=== PATIENT | female | born 1955 | race Caucasian/White ===

== ENCOUNTER 2016-12-19 21:52 | Emergency (ER) | payer BC ==
[2016-12-19 22:04] VITALS: BP 138/84; PULSE 90; TEMP 98.5; BMI 40.9
[2016-12-19] MEDS ORDERED: KETOROLAC TROMETHAMINE 30 MG/1 ML VIAL IM ONE (22:34)
[2016-12-19] MEDS ORDERED: KETOROLAC TROMETHAMINE 30 MG/1 ML VIAL ONE (22:35)
--- NOTE | 2016-12-19 22:53 | PDOC ---
History of Present Illness - General Chief Complaint: Pain Stated Complaint: KNEE PAIN Time Seen by Provider: 12/19/16 22:24 History Source: Patient Exam Limitations: No Limitations - History of Present Illness Initial Comments: 12/19/16 22:48 CC sudden episode of hearing a crack followed by severe left knee pain at 7:30 tonight; recent hx of stiff left knee x ~ 3 week; no remember trauma Occurred: reports: just prior to arrival Severity: reports: severe Pain Location: reports: lower extremity (left knee) Past History - Past Medical History Allergies/Adverse Reactions: Allergies Allergy/AdvReac Type Severity Reaction Status Date / Time codeine Allergy Severe Verified 12/19/16 22:02 Home Medications: Ambulatory Orders Amlodipine Besylate 5 mg PO ASDIR 12/19/16 Cholecalciferol (Vitamin D3) [Vitamin D3 -] 400 unit PO DAILY 12/19/16 Dulaglutide [Trulicity] 1.5 mg SQ ASDIR 12/19/16 Levothyroxine [Synthroid -] 50 mcg PO DAILY 12/19/16 Metformin HCl [Glucophage] 1,000 mg PO BID 12/19/16 Diabetes: Yes HTN: Yes Thyroid Disease: Yes (Hypothyroid) - Suicide/Smoking/Psychosocial Hx Smoking History: Never smoked Have you smoked in the past 12 months: No Information on smoking cessation initiated: No Hx Alcohol Use: No Drug/Substance Use Hx: No Substance Use Type: None Review of Systems - Review of Systems Constitutional: No: Symptoms Reported Respiratory: No: Symptoms reported Cardiac (ROS): No: Symptoms Reported Musculoskeletal: Yes: Other (left knee: no STS; FROM; no palp tenderness; no joint Laxity;) Integumentary: No: Symptoms Reported *Physical Exam - Vital Signs Last Vital Signs Temp Pulse Resp BP Pulse Ox 98.5 F 90 20 138/84 98 12/19/16 22:02 12/19/16 22:02 12/19/16 22:02 12/19/16 22:02 12/19/16 22:02 - Physical Exam General Appearance: Yes: Appropriately Dressed HEENT: positive: Thrush Neck: negative: Tender, Rigid Respiratory/Chest: positive: Lungs Clear Musculoskeletal: positive: Other (Left Knee; FROM knee no pain; no joint laxity ; no palp knee tenderness; no STS; joint not hot) Integumentary: positive: Normal Color, Dry, Warm ED Treatment Course - RADIOLOGY Radiology Studies Ordered: Category Date Time Status KNEE 2 POS-LEFT [RAD] Stat Radiology 12/19/16 22:34 Ordered - Medications Given in the ED: ED Medications Discontinued Medications Generic Name Dose Route Start Last Admin Trade Name Smiley PRN Reason Stop Dose Admin Ketorolac Tromethamine 30 mg 12/19/16 22:34 12/19/16 22:44 Toradol Injection - IM 12/19/16 22:35 30 mg ONCE ONE Administration Medical Decision Making - Medical Decision Making 12/19/16 23:03 xray= negative read by me; ; feeling much better post toradol; will refer to ortho krishna next week *DC/Admit/Observation/Transfer Diagnosis at time of Disposition: Left knee pain Qualifiers: Chronicity: acute Qualified Code(s): M25.562 - Pain in left knee; M25.562 - Pain in left knee - Discharge Dispostion Disposition: HOME Condition at time of disposition: Stable Admit: No - Patient Instructions Additional Instructions: please see ortopedist early next week; advil 400mg 3 times daily x 5-6 days; wear immobilzer for pain and crutches as needed
--- NOTE | 2016-12-19 23:06 | PDOC ---
*Physical Exam - Vital Signs Last Vital Signs Temp Pulse Resp BP Pulse Ox 98.5 F 90 20 138/84 98 12/19/16 22:02 12/19/16 22:02 12/19/16 22:02 12/19/16 22:02 12/19/16 22:02 ED Treatment Course - RADIOLOGY Radiology Studies Ordered: Category Date Time Status KNEE 2 POS-LEFT [RAD] Stat Radiology 12/19/16 22:34 Ordered - Medications Given in the ED: ED Medications Discontinued Medications Generic Name Dose Route Start Last Admin Trade Name Smiley PRN Reason Stop Dose Admin Ketorolac Tromethamine 30 mg 12/19/16 22:34 12/19/16 22:44 Toradol Injection - IM 12/19/16 22:35 30 mg ONCE ONE Administration *DC/Admit/Observation/Transfer Diagnosis at time of Disposition: Left knee pain Qualifiers: Chronicity: acute Qualified Code(s): M25.562 - Pain in left knee - Discharge Dispostion Disposition: HOME Condition at time of disposition: Stable - Referrals Referrals: Norman Coulter MD [Staff Physician] - Elan Bowman MD [Staff Physician] - - Patient Instructions Additional Instructions: please see ortopedist early next week; advil 400mg 3 times daily x 5-6 days; wear immobilzer for pain and crutches as needed
== END 2016-12-19 23:13 | disposition home or self-care (01) ==
LOC: JERFT 21:52
PROC: 3E0233Z Introduction of Anti-inflammatory into Muscle, Percutaneous Approach (ICD-10-PCS; principal; 2016-12-19)
DX: M25.562 Pain in left knee (principal); M25.662 Stiffness of left knee, not elsewhere classified; I10 Essential (primary) hypertension; E11.9 Type 2 diabetes mellitus without complications; Z79.84 Long term (current) use of oral hypoglycemic drugs; E03.9 Hypothyroidism, unspecified
CPT/HCPCS: 73560-TC-LT; 99282-25